=== PATIENT | female | born 1975 | race Caucasian/White ===

== ENCOUNTER 2020-12-16 07:34 | Emergency (ER) | payer SELFPAY ==
[2020-12-16] MEDS ORDERED: Dicyclomine 20 MG TAB ONE (08:39)
[2020-12-16] MEDS ORDERED: Ciprofloxacin 500 MG TAB ONE (08:39)
== END 2020-12-16 08:48 | disposition home or self-care (01) ==
LOC: BURERS 07:34
DX: A09 Infectious gastroenteritis and colitis, unspecified (principal); F41.9 Anxiety disorder, unspecified